=== PATIENT | male | born 1980 | race Caucasian/White ===

== ENCOUNTER 2016-10-17 14:57 | Emergency (ER) | payer OTHER ==
[~2016-10-17] VITALS: Ht 167.6 cm; Wt 86.0 kg
[~2016-10-17 14:57] MED LIST: ASPIR 8181 M1 PO; BACTRIM,SEPT1 TABLET PO; CLEOCIN300 MG PO; FLEXERIL10 MG PO; IBUPROFEN600 MG PO; KEFLEX500 MG PO; LEVAQUIN500 MG PO; MOTRIN800 MG PO; ULTRAM50 MG PO
[2016-10-17] MEDS ORDERED: NAPROSYN500 MG PO (17:13)
[2016-10-17] MEDS ORDERED: FLEXERIL5 MG PO (17:13)
[2016-10-17 17:24] VITALS: BP 110/67
== END 2016-10-17 17:41 | disposition home or self-care (01) ==
LOC: EME 14:57
DX: S16.1XXA Strain of muscle, fascia and tendon at neck level, initial encounter (principal); S39.012A Strain of muscle, fascia and tendon of lower back, initial encounter; V43.62XA Car passenger injured in collision with other type car in traffic accident, initial encounter; Z72.0 Tobacco use
CPT/HCPCS: 72040; 72100; 99281; 99283

== ENCOUNTER 2016-11-08 14:11 | Emergency (ER) | payer OTHER ==
[~2016-11-08] VITALS: Ht 167.6 cm; Wt 86.7 kg
[~2016-11-08 14:11] MED LIST changes: +FLEXERIL5 MG PO; +NAPROSYN500 MG PO
[2016-11-08 15:22] LABS: EOSINOPHIL (%) 0.3 % (0-5); HEMATOCRIT 38.8 % (38.0-50.0); IMMATURE GRANULOCYTE (%) 0.5 % (0.0-0.7); IMMATURE GRANULOCYTE COUNT 0.1 K/uL; INSTRUMENT ABS NEUTROPHIL CT 9.9 K/uL; LYMPHOCYTE COUNT 1.3 K/uL (1.0-2.8); MCH 27.8 PG (29.0-34.0); MCHC 32.2 G/DL (30.0-36.0); MCV 86.4 FL (86-99); MEAN PLAT.VOLUME 9.4 uM^3 (9.0-12.4); MONOCYTE (%) 5.1 % (3-12); MONOCYTE COUNT 0.6 K/uL (0-0.8); NEUTROPHIL (%) 83.3 % (45-76); NEUTROPHIL COUNT 9.9 K/uL (1.8-6.4); PLATELET COUNT 227 K/uL (156-360); RBC DIS.WIDTH-CV 13.4 % (11.8-14.6); RBC DIS.WIDTH-SD 42.5 % (39-53); RED BLOOD COUNT 4.49 M/uL (4.00-5.50); WHITE BLOOD COUNT 11.9 K/uL (4.1-10.2)
[2016-11-08 15:30] LABS: CHLORIDE 100 mEq/L (99-109); POTASSIUM 3.9 mEq/L (3.7-5.4); SODIUM 135 mEq/L (136-147)
[2016-11-08 15:31] LABS: GLUCOSE 104 mg/dL (70-99)
[2016-11-08 15:33] LABS: ANION GAP 9 MEQ/L (2-14)
[2016-11-08 15:35] LABS: GFR ESTIMATE (CALCULATED) > 59 mL/min/
[2016-11-08 15:36] LABS: UREA NITROGEN (BUN) 12 mg/dL (9-23)
[2016-11-08] MEDS ORDERED: BACTRIM,SEPT1 TABLET PO (16:26)
[2016-11-08] MEDS ORDERED: KEFLEX500 MG PO (16:26)
[2016-11-08 17:18] VITALS: BP 147/80
== END 2016-11-08 17:20 | disposition home or self-care (01) ==
LOC: EME 14:11
PROC: 0H9KXZZ Drainage of Right Lower Leg Skin, External Approach (ICD-10-PCS; principal; 2016-11-08)
DX: L02.415 Cutaneous abscess of right lower limb (principal); F11.10 Opioid abuse, uncomplicated; F17.200 Nicotine dependence, unspecified, uncomplicated
CPT/HCPCS: 80048; 81003; 83605; 85025; 99281; 99284

== ENCOUNTER 2017-02-16 10:09 | Emergency (ER) | payer OTHER ==
[~2017-02-16] VITALS: Ht 170.2 cm; Wt 81.8 kg
[2017-02-16] MEDS ORDERED: KEFLEX500 MG PO (10:51)
[2017-02-16] MEDS ORDERED: BACTRIM,SEPT1 TABLET PO (10:51)
[2017-02-16 11:34] VITALS: BP 128/82
== END 2017-02-16 11:35 | disposition home or self-care (01) ==
LOC: EME 10:09
DX: L02.414 Cutaneous abscess of left upper limb (principal); F19.10 Other psychoactive substance abuse, uncomplicated
CPT/HCPCS: 87070; 87075; 87077; 87186; 87205; 99281; 99285

== ENCOUNTER 2017-12-02 07:19 | Inpatient (IN) | payer OTHER ==
[~2017-12-02] VITALS: Ht 172.7 cm; Wt 98.2 kg
[2017-12-02 08:52] LABS: HEMOGLOBIN 14.8 G/DL (12.5-16.6); MCH 31.1 PG (29.0-34.0); MCHC 32.2 G/DL (30.0-36.0); MCV 96.6 FL (86-99); NRBC (%) 0.1 /100 WBC (0-0); PLATELET COUNT 203 K/uL (156-360); RBC DIS.WIDTH-CV 14.5 % (11.8-14.6); RED BLOOD COUNT 4.76 M/uL (4.00-5.50); WHITE BLOOD COUNT 22.4 K/uL (4.1-10.2)
[2017-12-02 09:01] LABS: CHLORIDE 102 mEq/L (99-109); POTASSIUM 5.4 mEq/L (3.7-5.4); SODIUM 145 mEq/L (136-147)
[2017-12-02 09:02] LABS: GLUCOSE 60 mg/dL (70-99)
[2017-12-02 09:06] LABS: CREATININE 2.2 mg/dL (0.6-1.3); GFR ESTIMATE (CALCULATED) 36 mL/min/ (58.99-99999); SERUM ETHYL ALCOHOL 77 mg/dL
[2017-12-02 09:07] LABS: UREA NITROGEN (BUN) 17 mg/dL (9-23)
[2017-12-02 10:00] LABS: ANISOCYTOSIS 1+; BAND NEUTROPHILS 11.5 % (0-8.0); EOSINOPHIL ABS CT 0; MACROCYTES 1+; METAMYELOCYTES 2.5 %; MONOCYTES 4.5 % (0-9.0); PLAT.SUFFICIENCY ADEQUATE; SEG.NEUTROPHILS 73.5 % (46.0-76.0)
[2017-12-02 10:06] LABS: APPEARANCE SL.HAZY ((CLEAR)); BILIRUBIN NEGATIVE; BLOOD MODERATE; COLOR YELLOW ((YELLOW)); GLUCOSE (STRIP) NEGATIVE; KETONES NEGATIVE; LEUKOCYTES NEGATIVE; NITRITE NEGATIVE; PROTEIN (STRIP) 30; UROBILINOGEN 0.2 MG/DL (0.2-1.0)
[2017-12-02 10:16] LABS: AMPHETAMINE NEGATIVE (500 ng/mL); BARBITURATES NEGATIVE (200 ng/mL); BENZODIAZEPINES NEGATIVE (150 ng/mL); BUPRENORPHINE NEGATIVE (10 ng/mL); COCAINE PRESUMPTIVE POSITIVE (150 ng/mL); METHADONE NEGATIVE (200 ng/mL); METHAMPHETAMINE NEGATIVE (500 ng/mL); OPIATES (MORPHINE) NEGATIVE (100 ng/mL); OXYCODONE NEGATIVE (100 ng/mL); PHENCYCLIDINE NEGATIVE (25 ng/mL); PROPOXYPHENE NEGATIVE (300 ng/mL); THC CANNABINOIDS NEGATIVE (50 ng/mL); TRICYCLIC ANTIDEPRESSANTS NEGATIVE (300 ng/mL)
[2017-12-02 10:19] LABS: BACTERIA RARE /HPF; EPITHELIAL CELLS NONE SEEN /HPF; MUCUS TRACE /LPF; RED BLOOD CELLS 20-30 /HPF (0-5); WHITE BLOOD CELLS 0-5 /HPF (0-5)
[2017-12-02 10:30] LABS: BASE EXCESS -7.1 mEq/L (-3 to +3); BICARBONATE 21.5 mEq/L (22-26); CARBOXY HGB 4.8 % (0-5); METHEMOGLOBIN 1.1 % (0-1.5); PCO2 55 mm Hg (35-45); PO2 72 mm Hg (80-100)
[2017-12-02 10:31] LABS: COMMENTS - BLOOD GASES A+C+; DEVICE NC; O2 FLOW 2 L/MIN; SITE LR; TOTAL RESP RATE 12 resp/min
[2017-12-02 10:54] LABS: SALICYLATE < 5.0 MG/DL (15-30)
[2017-12-02 10:55] LABS: ACETAMINOPHEN (TYLENOL) < 10 mcg/mL (10-30)
[2017-12-02 12:00] LABS: TOTAL CK 1715 IU/L (1-294)
[2017-12-02 12:10] LABS: CREATINE KINASE 1715 IU/L (1-294)
[2017-12-02 12:13] LABS: CK-MB 32.4 ng/mL (0.0-4.9); CKMB RELATIVE INDEX 1.9 (0.0-3.9)
[2017-12-02 12:19] LABS: MAGNESIUM 3.9 mg/dL (1.3-2.7)
[2017-12-02 12:32] LABS: TROP-I INTERPRETATION NEGATIVE
[2017-12-02 15:50] VITALS: BP 107/56
[2017-12-02 17:46] VITALS: BP 122/70
[2017-12-02 18:37] LABS: TROP-I INTERPRETATION POSITIVE; TROPONIN-I 2.05 ng/mL (0.0-0.30)
[2017-12-02 18:38] LABS: CHLORIDE 103 MEQ/L (99-109); CREATININE 1.9 MG/DL (0.6-1.3); GFR ESTIMATE (CALCULATED) 42 mL/min/ (58.99-99999); GLUCOSE 72 mg/dL (70-99); MAGNESIUM 2.4 mg/dl (1.3-2.7)
[2017-12-02 18:41] LABS: POTASSIUM 4.3 MEQ/L (3.7-5.4); SODIUM 137 MEQ/L (136-147); UREA NITROGEN (BUN) 27 mg/dL (9-23)
[2017-12-02 19:29] VITALS: BP 142/68
[2017-12-02 20:35] LABS: INTER. NORMALIZED RATIO 1.1
[2017-12-02 20:38] LABS: PTT 25.6 SEC (25-37)
[2017-12-02 22:50] VITALS: BP 134/68
[2017-12-03 01:26] LABS: TROP-I INTERPRETATION POSITIVE
[2017-12-03 01:35] LABS: TROPONIN-I 1.67 ng/mL (0.0-0.30)
[2017-12-03 04:28] VITALS: BP 121/72
[2017-12-03 05:19] LABS: BASOPHIL (%) 0.2 % (0-1); EOSINOPHIL (%) 0.2 % (0-5); HEMATOCRIT 36.9 % (38.0-50.0); IMMATURE GRANULOCYTE (%) 1.1 % (0.0-0.7); LYMPHOCYTE COUNT 1.6 K/uL (1.0-2.8); MCH 30.6 PG (29.0-34.0); MCHC 33.6 G/DL (30.0-36.0); MONOCYTE (%) 1.7 % (3-12); MONOCYTE COUNT 0.2 K/uL (0-0.8); NEUTROPHIL (%) 82.8 % (45-76); NEUTROPHIL COUNT 9.7 K/uL (1.8-6.4); RBC DIS.WIDTH-CV 14.6 % (11.8-14.6); RBC DIS.WIDTH-SD 49.5 % (39-53); RED BLOOD COUNT 4.05 M/uL (4.00-5.50); WHITE BLOOD COUNT 11.7 K/uL (4.1-10.2)
[2017-12-03 05:23] LABS: ALBUMIN 3.4 g/dL (3.2-4.8); CHLORIDE 100 mEq/L (99-109); POTASSIUM 3.6 mEq/L (3.7-5.4); SODIUM 141 mEq/L (136-147)
[2017-12-03 05:26] LABS: GLUCOSE 78 mg/dL (70-99); TOTAL PROTEIN 6.2 g/dL (6.4-8.3)
[2017-12-03 05:27] LABS: MAGNESIUM 2.2 mg/dL (1.3-2.7)
[2017-12-03 05:28] LABS: TOTAL BILIRUBIN 0.6 mg/dL (0.0-1.0)
[2017-12-03 05:29] LABS: ALKALINE PHOSPHATASE 95 IU/L (3-129); PHOSPHORUS 2.6 mg/dL (2.5-4.9)
[2017-12-03 05:31] LABS: UREA NITROGEN (BUN) 24 mg/dL (9-23)
[2017-12-03 05:57] LABS: HEMOGLOBIN 12.4 G/DL (12.5-16.6); MCV 91.1 FL (86-99)
[2017-12-03 06:00] LABS: PLAT.SUFFICIENCY DECREASED
[2017-12-03 06:05] LABS: ALT (GPT) 2255 IU/L (3-49); CK-MB 422.1 ng/mL (0.0-4.9); CREATININE 1.4 mg/dL (0.6-1.3); GFR ESTIMATE (CALCULATED) > 59 mL/min/ (58.99-99999)
[2017-12-03 06:06] LABS: AST (GOT) 4327 IU/L (2-34)
[2017-12-03 06:19] LABS: PLATELET COUNT 133 K/uL (156-360)
[2017-12-03 08:03] LABS: CKMB RELATIVE INDEX 1.3 (0.0-3.9); TOTAL CK 31650 IU/L (1-294)
[2017-12-03 08:07] LABS: CREATINE KINASE 31650 IU/L (1-294)
[2017-12-03 08:15] VITALS: BP 135/76
[2017-12-03 11:44] VITALS: BP 123/69
[2017-12-03 16:00] VITALS: BP 115/65
[2017-12-03 19:00] VITALS: BP 132/70
[2017-12-03 23:30] VITALS: BP 130/76
[2017-12-04 04:00] VITALS: BP 136/82
[2017-12-04 06:35] LABS: BASOPHIL (%) 0.4 % (0-1); EOSINOPHIL (%) 1.1 % (0-5); EOSINOPHIL COUNT 0.1 K/uL (0-0.3); IMMATURE GRANULOCYTE (%) 1.1 % (0.0-0.7); LYMPHOCYTE (%) 20.4 % (15-42); LYMPHOCYTE COUNT 1.5 K/uL (1.0-2.8); MCH 30.1 PG (29.0-34.0); MCHC 32.4 G/DL (30.0-36.0); MCV 92.7 FL (86-99); MONOCYTE COUNT 0.2 K/uL (0-0.8); NEUTROPHIL COUNT 5.3 K/uL (1.8-6.4); PLATELET COUNT 103 K/uL (156-360); RBC DIS.WIDTH-CV 14.4 % (11.8-14.6); RBC DIS.WIDTH-SD 49.1 % (39-53); RED BLOOD COUNT 3.99 M/uL (4.00-5.50); WHITE BLOOD COUNT 7.1 K/uL (4.1-10.2)
[2017-12-04 07:28] LABS: ALBUMIN 2.9 G/DL (3.2-4.8); ALKALINE PHOSPHATASE 79 IU/L (3-129); CHLORIDE 108 MEQ/L (99-109); GLUCOSE 87 mg/dL (70-99); PHOSPHORUS 1.4 mg/dL (2.5-4.9); SODIUM 140 MEQ/L (136-147); TOTAL BILIRUBIN 0.5 MG/DL (0.0-1.0); TOTAL PROTEIN 5.6 G/DL (6.4-8.3); UREA NITROGEN (BUN) 9 mg/dL (9-23)
[2017-12-04 07:33] LABS: ALT (GPT) 1333 IU/L (3-49); AST (GOT) 1679 IU/L (2-34); CREATINE KINASE 17058 IU/L (1-294); CREATININE 0.9 MG/DL (0.6-1.3); GFR ESTIMATE (CALCULATED) > 59 mL/min/ (58.99-99999); MAGNESIUM 1.8 mg/dl (1.3-2.7); POTASSIUM 4.4 MEQ/L (3.7-5.4)
[2017-12-04 10:16] VITALS: BP 135/85
[2017-12-04 11:39] VITALS: BP 126/77
[2017-12-04 12:55] LABS: HEPATITIS B SURFACE ANTIGEN Nonreactive
[2017-12-04 12:56] LABS: ANTI-HEPATITIS A VIRUS (IGM) Nonreactive
[2017-12-04 12:58] LABS: ANTI-HEPATITIS B CORE (IGM) Nonreactive
[2017-12-04 13:20] LABS: HEPATITIS C ANTIBODY REACTIVE
[2017-12-04 16:41] VITALS: BP 139/95
[2017-12-04 20:40] VITALS: BP 172/99
[2017-12-04 23:34] VITALS: BP 150/83
[2017-12-05 04:11] VITALS: BP 145/82
[2017-12-05 05:46] LABS: HEMATOCRIT 39.3 % (38.0-50.0); MCH 30.1 PG (29.0-34.0); MCHC 33.1 G/DL (30.0-36.0); RBC DIS.WIDTH-CV 13.9 % (11.8-14.6); RBC DIS.WIDTH-SD 47.4 % (39-53); RED BLOOD COUNT 4.32 M/uL (4.00-5.50); WHITE BLOOD COUNT 7.4 K/uL (4.1-10.2)
[2017-12-05 05:47] LABS: PLATELET COUNT 137 K/uL (156-360)
[2017-12-05 06:32] LABS: ALBUMIN 3.4 G/DL (3.2-4.8); ALKALINE PHOSPHATASE 78 IU/L (3-129); ALT (GPT) 1009 IU/L (3-49); AST (GOT) 877 IU/L (2-34); CHLORIDE 106 MEQ/L (99-109); CREATINE KINASE 8922 IU/L (1-294); CREATININE 0.9 MG/DL (0.6-1.3); GFR ESTIMATE (CALCULATED) > 59 mL/min/ (58.99-99999); GLUCOSE 81 mg/dL (70-99); MAGNESIUM 1.6 mg/dl (1.3-2.7); PHOSPHORUS 2.4 mg/dL (2.5-4.9); POTASSIUM 3.7 MEQ/L (3.7-5.4); SODIUM 140 MEQ/L (136-147); TOTAL BILIRUBIN 0.9 MG/DL (0.0-1.0); TOTAL PROTEIN 6.7 G/DL (6.4-8.3); UREA NITROGEN (BUN) 6 mg/dL (9-23)
[2017-12-05 08:28] VITALS: BP 125/68
[2017-12-05 11:47] VITALS: BP 132/80
[2017-12-05 16:00] VITALS: BP 119/57
[2017-12-05 19:47] VITALS: BP 119/67
[2017-12-05 23:32] VITALS: BP 122/69
[2017-12-06 04:11] VITALS: BP 117/62
[2017-12-06 06:39] LABS: ALBUMIN 3.4 G/DL (3.2-4.8); ALKALINE PHOSPHATASE 73 IU/L (3-129); ALT (GPT) 735 IU/L (3-49); CHLORIDE 106 MEQ/L (99-109); GFR ESTIMATE (CALCULATED) > 59 mL/min/ (58.99-99999); GLUCOSE 82 mg/dL (70-99); POTASSIUM 3.4 MEQ/L (3.7-5.4); SODIUM 141 MEQ/L (136-147); TOTAL BILIRUBIN 0.8 MG/DL (0.0-1.0); TOTAL PROTEIN 6.8 G/DL (6.4-8.3); UREA NITROGEN (BUN) 8 mg/dL (9-23)
[2017-12-06 06:42] LABS: AST (GOT) 406 IU/L (2-34); CREATINE KINASE 3024 IU/L (1-294)
[2017-12-06 08:00] VITALS: BP 113/67
[2017-12-06 12:31] VITALS: BP 120/70
[2017-12-06 17:23] VITALS: BP 141/94
[2017-12-07 00:02] VITALS: BP 127/77
[2017-12-07 06:36] LABS: ALBUMIN 3.1 G/DL (3.2-4.8); ALKALINE PHOSPHATASE 66 IU/L (3-129); ALT (GPT) 492 IU/L (3-49); CHLORIDE 107 MEQ/L (99-109); CREATINE KINASE 974 IU/L (1-294); GFR ESTIMATE (CALCULATED) > 59 mL/min/ (58.99-99999); GLUCOSE 122 mg/dL (70-99); POTASSIUM 3.4 MEQ/L (3.7-5.4); SODIUM 143 MEQ/L (136-147); UREA NITROGEN (BUN) 9 mg/dL (9-23)
[2017-12-07 06:37] LABS: AST (GOT) 178 IU/L (2-34); TOTAL BILIRUBIN 0.5 MG/DL (0.0-1.0)
[2017-12-07 08:41] VITALS: BP 125/77
[2017-12-07] MEDS ORDERED: THERAGRAN1 TABLET PO (10:01)
[2017-12-07] MEDS ORDERED: K-DUR20 MEQ PO (10:01)
[2017-12-07] MEDS ORDERED: FOLIC ACID1 MG PO (10:01)
[2017-12-07] MEDS ORDERED: Thiamine,Vitamin B1 PO (10:01)
[2017-12-07] MEDS ORDERED: LEVOFLOXACIN500 MG PO (10:01)
== END 2017-12-07 15:13 | disposition home or self-care (01) | DRG 682 ==
LOC: EME 07:19 → EDOF 11:48 → 4EAST 11:48 → ENRESERV 11:49 → EDOF 15:43 → 5SOUTH 17:10 → ENRESERV 18:52 → 4EAST 22:45 → ENRESERV 12-04 18:20 → 3EAST 12-04 20:22
PROVIDERS: Emergency Medicine; Family Medicine; Internal Medicine; Internal Medicine Nephrology
DX: N17.0 Acute kidney failure with tubular necrosis (principal); E86.0 Dehydration; J69.0 Pneumonitis due to inhalation of food and vomit; M62.82 Rhabdomyolysis; E87.2 Acidosis; F10.129 Alcohol abuse with intoxication, unspecified; K70.10 Alcoholic hepatitis without ascites; T50.901A Poisoning by unspecified drugs, medicaments and biological substances, accidental (unintentional), initial encounter; D69.6 Thrombocytopenia, unspecified; B19.20 Unspecified viral hepatitis C without hepatic coma; F14.10 Cocaine abuse, uncomplicated; E83.42 Hypomagnesemia; D69.59 Other secondary thrombocytopenia; F17.200 Nicotine dependence, unspecified, uncomplicated; I48.0 Paroxysmal atrial fibrillation; E87.6 Hypokalemia; E66.9 Obesity, unspecified; Z68.33 Body mass index [BMI] 33.0-33.9, adult; R09.02 Hypoxemia; N28.1 Cyst of kidney, acquired
CPT/HCPCS: 36600; 70450; 71045; 71250; 76770; 80048; 80048 91; 80053; 80074; 80202; 81003; 82550; 82553; 82803; 82948; 83605; 83735; 83930; 84100; 84484; 84999; 85025; 85027; 85610; 85730; 87040; 87070; 87077; 87205; 87801; 93005; 93306; 94799; 99202; 99281; 99285; G0480; J1644; J2310; J2543; J3370; J7030; J7050; J7070